=== PATIENT | male | born 1930 | race Caucasian/White ===

== ENCOUNTER 2019-03-27 09:45 | Observation (INO) | payer BC ==
[2019-03-27] MEDS ORDERED: NS 0.9% 1000 ML** 1,000 ML IV ONE ×2 (10:14→18:46)
--- NOTE | 2019-03-27 10:14 | ED ---
Altered Mental Status - HPI Summary HPI Summary: An 88 y/o M presents to ED with AMS onset first noticed yesterday. Per his , Justine, pt had decreased oral intake and generalized weakness and lethargy yesterday, and today he was unable to sit up on his own. She also noticed pt has a cough. At bedside, pt says he does not know why he's here. When prompted, he complains of CP, SOB. He does not know the month or date. At bedside, he is unable to sit up. Bedside temp is 101.9 F. - History Of Current Complaint Chief Complaint: EDAltMentalStatus Stated Complaint: LETHARGY PER EMS Time Seen by Provider: 03/27/19 10:08 Hx Obtained From: Patient, Family/Gum Rolling Machine Operator - , Justine Onset/Duration: Still Present Timing: Constant, Lasting Days - yesterday Severity Initially: Moderate Severity Currently: Moderate Character: Confusion Associated Signs And Symptoms: Positive: Fever, Weakness - Allergies/Home Medications Allergies/Adverse Reactions: Allergies Allergy/AdvReac Type Severity Reaction Status Date / Time bee venom protein (honey bee) Allergy Anaphylatic Verified 03/27/19 10:17 Shock Home Medications: Home Medications Warfarin TAB(*) [Coumadin TAB(*)] 3.75 mg PO 1700 03/27/19 [History Confirmed ] PMH/Surg Hx/FS Hx/Imm Hx Previously Healthy: No Cardiovascular History: Reports: Hx Cardiomegaly - PT STATES POSSIBLY, Hx Pacemaker/ICD - [employer] Respiratory History: Denies: Other Respiratory Problems/Disorders GI History: Denies: Other GI Disorders History: Denies: Other Problems/Disorders Sensory History: Reports: Hx Cataracts, Hx Contacts or Glasses - GLASSES Denies: Hx Hearing Aid Opthamlomology History: Reports: Hx Cataracts, Hx Contacts or Glasses - GLASSES Neurological History: Denies: Other Neuro Impairments/Disorders - Surgical History Surgery Procedure, Year, and Place: PAC[facility]AKER, 1995, [facility] Hx Anesthesia Reactions: No Infectious Disease History: No Infectious Disease History: Denies: Traveled Outside the [place] in Last 30 Days - Family History Family History: neg: anaesthesia reaction - Social History Occupation: Retired Lives: With Family Alcohol Use: Rare Hx Substance Use: No Substance Use Type: Reports: None Hx Tobacco Use: Yes Smoking Status (MU): Former Smoker Review of Systems Positive: Fever, Other - pos: lethargy Positive: Chest Pain Positive: Shortness Of Breath, Cough Positive: Other - pos: decreased oral intake Neurological: Other - pos: confusion/AMS Positive: Weakness All Other Systems Reviewed And Are Negative: Yes Physical Exam - Summary Physical Exam Summary: VITAL SIGNS: Reviewed. GENERAL: Patient is a well-developed and nourished (MALE OR FEMALE) who is lying comfortable in the stretcher. Patient is not in any acute respiratory distress. HEAD AND FACE: No signs of trauma. No ecchymosis, hematomas or skull depressions. No sinus tenderness. EYES: PERRLA, EOMI x 2, No injected conjunctiva, no nystagmus. EARS: Hearing grossly intact. Ear canals and tympanic membranes are within normal limits. MOUTH: Oral mucosa is dry. NECK: Supple, trachea is midline, no adenopathy, no JVD, no carotid bruit, no c- spine tenderness, neck with full ROM. CHEST: Symmetric, no tenderness at palpation LUNGS: Decreased breath sounds bilaterally CVS: Regular rate and rhythm, S1 and S2 present, no murmurs or gallops appreciated. ABDOMEN: Soft, non-tender. No signs of distention. No rebound, no guarding, and no masses palpated. Bowel sounds are normal. EXTREMITIES: FROM in all major joints, no edema, no cyanosis or clubbing. NEURO: Alert and oriented x 3. No acute neurological deficits. Speech is normal and follows commands. SKIN: Dry and warm, turgor is increased Triage Information Reviewed: Yes Vital Signs On Initial Exam: Initial Vitals Temp Pulse Resp BP Pulse Ox 101.9 F 113 20 133/72 98 03/27/19 10:05 03/27/19 10:05 03/27/19 10:05 03/27/19 10:05 03/27/19 10:05 Vital Signs Reviewed: Yes Diagnostics - Vital Signs Vital Signs Temp Pulse Resp BP Pulse Ox 03/27/19 10:05 101.9 F 113 20 133/72 98 - Laboratory Result Diagrams: 03/28/19 05:43 03/28/19 05:43 Lab Statement: Any lab studies that have been ordered have been reviewed, and results considered in the medical decision making process. - Radiology CXR Radiology Interpretation Completed By: Radiologist Summary of Radiographic Findings: IMPRESSION: HYPERINFLATION, CONSISTENT WITH COPD. NO ACTIVE CARDIOPULMONARY DISEASE. ED provider has reviewed this report. - EKG 1020 Cardiac Rate: Tachycardia - 106 bpm EKG Rhythm: Sinus Tachycardia Ectopy: PVCs Summary of EKG Findings: No ST elevation. Inverted T-waves in aVL, V1-V6. 1134 Cardiac Rate: NL - 71 bpm EKG Rhythm: Sinus Rhythm EKG Comparison: No Significant Change - from EKG on 06/26/06. Summary of EKG Findings: RBBB. Altered Mental Statu Course/Dx - Course Assessment/Plan: This patient is an 88-year-old male with past medical history significant for hypertension, atrial fibrillation on Coumadin, coronary artery disease, dyslipidemia presents to the emergency department with family members complaining of weakness. The patient has chest pain, shortness of breath, palpitations. He has no other complaints. Test results shows slight anemia, creatinine 1.18, CPK 300, troponin 0.05, CRP is 38.4, BNP of 919. EKG shows a normal sinus rhythm with right bundle-branch block. Because of the increased troponin the patient was given aspirin. I did not give the patient Lasix since the patients blood pressure is only 90/50. I discussed my physical exam and findings with Dr. Zuñiga from the hospitalist services who accepted the patient for admission. - Diagnoses Provider Diagnoses: CHF (congestive heart failure), Weakness, Elevated troponin - Provider Notifications Discussed Care Of Patient With: Lebron Spring - cardiology Time Discussed With Above Provider: 11:52 Instructed by Provider To: Other - Reviewed EKG, does not feel it shows an acute STEMI Discharge - Sign-Out/Discharge Documenting (check all that apply): Patient Departure - ADM Patient Received Moderate/Deep Sedation with Procedure: No - Discharge Plan Condition: Stable Disposition: ADMITTED TO [facility] - Billing Disposition and Condition Condition: STABLE Disposition: Admitted to [facility] - Attestation Statements Document Initiated by Scribe: Yes Documenting Scribe: Ko Cabrera Provider For Whom Scribe is Documenting (Include Credential): Dr. Wilton Shi MD Scribe Attestation: Ko Atkins, scribed for Dr. Wilton Shi MD on 03/28/19 at 0719. Scribe Documentation Reviewed: Yes Provider Attestation: The documentation as recorded by the tamekaibe, AmyCarlitos Cabrera accurately reflects the service I personally performed and the decisions made by me, Dr. Wilton Shi MD Status of Scribe Document: Viewed Consult Consult: 1200: Consulted with Dr. Zuñiga, hospitalist Pt will be admitted.
[2019-03-27] MEDS ORDERED: Acetaminophen TAB* 325 MG PO ONE (10:15)
[2019-03-27 10:32] LABS: ABS Basophils 0.1 10^3/ul (0-0.2); ABS Eosinophils 0.1 10^3/ul (0-0.6); ABS Lymphocytes 0.6 10^3/ul (1.0-4.8); ABS Monocytes 0.9 10^3/ul (0-0.8); ABS Neutrophils 6.4 10^3/ul (1.5-7.7); ABS Nucleated RBC 0 10^3/ul; Eosinophil % 0.7 %; Hematocrit 31 % (42-52); Hemoglobin 10.5 g/dL (14.0-18.0); Lymphocyte % 7.5 %; Mean Corpuscular HGB Conc 34 g/dL (31-36); Mean Corpuscular Hemoglobin 31 pg (27-31); Mean Corpuscular Volume 91 fL (80-94); Mean Platelet Volume 8.6 fL (7.4-10.4); Nucleated Red Blood Cells % 0; Platelet Count 225 10^3/uL (150-450); Red Blood Count 3.41 10^6 /uL (4.18-5.48); Red Cell Distribution Width 13 % (10.5-15); White Blood Count 8.1 10^3/uL (3.5-10.8)
[2019-03-27 10:54] LABS: Activated Partial Thrombo Time 37.1 seconds (26.0-36.3); INR 2.86 (0.82-1.09)
[2019-03-27 10:58] LABS: Troponin I 0.05 ng/mL (<0.04)
[2019-03-27 11:11] LABS: ALT 14 U/L (7-52); AST 25 U/L (13-39); Albumin 3.3 g/dL (3.2-5.2); Albumin/Globulin Ratio 0.9 (1-3); Alkaline Phosphatase 90 U/L (34-104); Anion Gap 10 mmol/L (2-11); BUN/Creatinine Ratio 20.3 (8-20); Blood Urea Nitrogen 24 mg/dL (6-24); C Reactive Protein 38.49 mg/L (<8.01); CO2 Carbon Dioxide 20 mmol/L (22-32); Calcium 8.7 mg/dL (8.6-10.3); Chloride 108 mmol/L (101-111); Creatine Kinase 300 U/L (10-223); EGFR African American 70.7 (>60); EGFR Non-African American 58.4 (>60); Globulin 3.5 g/dL (2-4); Glucose 87 mg/dL (70-100); Magnesium 2.2 mg/dL (1.9-2.7); Potassium 4.5 mmol/L (3.5-5.0); Sodium 138 mmol/L (135-145); Total Protein 6.8 g/dL (6.4-8.9)
[2019-03-27 11:28] LABS: TSH (Thyroid Stimulating Horm) 0.35 mcIU/mL (0.34-5.60)
[2019-03-27] MEDS ORDERED: Aspirin 81 mg CHEW TAB* 81 MG TAB.CHEW PO ONE (11:48)
[2019-03-27 12:46] LABS: Urine Appearance Cloudy; Urine Bacteria 1+ (Absent); Urine Bilirubin Negative (Negative); Urine Blood 2+ (Negative); Urine Color Yellow; Urine Glucose Negative (Negative); Urine Ketones 1+ (Negative); Urine Nitrite Negative (Negative); Urine Protein Negative (Negative); Urine Red Blood Cell 3+(>10/hpf) (Absent); Urine Urobilinogen Negative (Negative); Urine White Blood Cell Trace(0-5/hpf) (Absent)
[2019-03-27 13:04] LABS: Ferritin 243.7 ng/mL (24-336)
[2019-03-27 13:26] LABS: Folate 18.33 ng/mL (>3.99)
[2019-03-27] MEDS ORDERED: Polyethylene Glycol 3350* 17 GM PACKET PO PRN (13:41)
[2019-03-27] MEDS ORDERED: Acetaminophen TAB* 325 MG PO PRN (14:30)
[2019-03-27] MEDS ORDERED: Perflutren Lipid Microsphere* 3 ML VIAL ONE (14:36)
[2019-03-27 14:37] LABS: Iron < 17 ug/dL (50-212)
[2019-03-27] MEDS ORDERED: Senna TAB PO PRN (14:48)
[2019-03-27 15:10] LABS: Troponin I 0.05 ng/mL (<0.04)
--- NOTE | 2019-03-27 16:24 | HP ---
CC: Dr. Dianne Johansen; Dr. Arley Julian HISTORY AND PHYSICAL: DATE OF ADMISSION: 03/27/19 PRIMARY CARE PROVIDER: Dr. Dianne Johansen. EXTENSION SERVICE SPECIALIST: Dr. Arley Julian. HEALTHCARE PROXY: , Justine. CHIEF COMPLAINT: One day of lethargy and weakness. HISTORY OF PRESENT ILLNESS: Mr. 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 She noted that she tried to sit him up in bed and he was too weak to even sit up. She notes that over the past few weeks, he has had a mild nonproductive cough that is not progressive. She also notes that he has been having some constipation recently with last bowel movement approximately 2 days ago. Of note, this bowel movement may have contained blood as well, which he does not have a history of. The patient reporting abdominal pain just today , but denies nausea, vomiting, or diarrhea. He does report significant gas, which is a chronic problem, which is causing a lot of diffuse abdominal pain. He is able to pass gas. Starting yesterday, the thinks he was just a bit weaker than normal, although it is difficult to tell because of his inclusion body myositis, he has had progressive weakness with his baseline constantly deteriorating. Yesterday, he also had a decrease in his appetite and she reports that he "barely ate" besides some toast in the morning and no fluids during the day. The patient denies shortness of breath, chest pain, headache, dysuria, fevers, chills, or night sweats. In the emergency room, he was noted to have a fever to 101.9. He had mild anemia with creatinine at baseline. CPK 300 with troponin 0.05 and CRP 38. His EKG showed normal sinus rhythm with a right bundle branch block. His EKG was discussed with covering student support services director, Dr. Spring, who produced EKGs from clinic that showed that this is not a new EKG finding. The patient was given Tylenol, aspirin 324 mg, 1 L of IV fluids, and had blood culture and urine test sent, and he was admitted to Medicine for further workup. PAST MEDICAL HISTORY: 1. Myocardial infarction in 1995, status post PCI of LAD, complicated by reocclusion in 3 weeks. 2. Ischemic cardiomyopathy with ejection fraction 20% to 25%, status post ICD and PPM. 3. Cardioembolic event when off warfarin. reports blood clot to kidney, so the patient has continued on anticoagulation. 4. Nonsustained ventricular tachycardia. 5. 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 6. Right bundle branch block since 2008. 7. Melanoma, status post resection 2010. PAST SURGICAL HISTORY: 1. Cholecystectomy. 2. Appendectomy. 3. Surgery for endometriosis. 4. C-sections x3. MEDICATIONS: 1. Aspirin 81 mg daily. 2. Warfarin 2.5 mg daily. 3. Carvedilol 3.125 mg twice a day. 4. Lisinopril 2.5 mg daily. 5. Spironolactone 12.5 mg daily. ALLERGIES: BEE VENOM PROTEIN CAUSES ANAPHYLACTIC SHOCK. FAMILY HISTORY: Mother from heart failure. Father from heart attack, had Alzheimer's. SOCIAL HISTORY: The patient lives with his and daughter. 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 He quit tobacco in 1972. He denies alcohol or other drug use. REVIEW OF SYSTEMS: The 10-point review of systems as per HPI, otherwise negative. PHYSICAL EXAMINATION GENERAL: Chronically ill-appearing elderly man, in no acute distress. Friendly , alert, and conversant. VITAL SIGNS: T-max 101.9, heart rate 60s, blood pressure 102/55, respiratory rate 12, oxygen saturation 97% on room air. HEENT: Dry mucous membranes NECK: No JVD. LUNGS: Clear to auscultation bilaterally. HEART: Regular rate and rhythm. No murmurs, gallops, or rubs. ABDOMEN: Soft, nontender, nondistended. Hyperactive bowel sounds. No organomegaly. EXTREMITIES: Warm and well perfused. No edema. NEURO: Proximal muscle weakness of upper and lower extremities, 4/5 handgrip and ankle flexion and extension, 5/5. DIAGNOSTIC STUDIES/LAB DATA: Labs reviewed and significant for hemoglobin 10.5, slightly lower than baseline , normocytic. INR 2.86. Creatinine 1.18 at baseline. Troponin 0.05. CPK 300. BNP 919. UA with ketones and 3+ rbc's, positive hyaline cast, negative leuk esterase, and nitrites. Chest x-ray, PA and lateral, hyperinflation consistent with COPD. No active cardiopulmonary disease. ASSESSMENT AND PLAN: An 88-year-old man with a history of inclusion body myositis; ischemic cardiomyopathy, EF 20% to 25% with cardioembolic event off anticoagulation, now on warfarin, status post ICD and PPM, who is presenting with multiple nonspecific symptoms including fever, lethargy, progressive weakness, constipation, abdominal pain, gas, and several weeks of cough. 1. Fever with multiple other nonspecific symptoms. No focal signs of infection at this time with clear chest x-ray and urine not concerning for infection. The patient has had cough, so can consider viral infection, although this is not a typical symptomatology. We can repeat chest x-ray when the patient is hydrated to reexamine for pneumonia, although also has no SOB, chills, hypoxia, leukocytosis. The patient is reporting abdominal pain as of today, but also reports history of gas with abdominal pain, and abdominal exam and LFTs are benign. For constipation, we will order bowel regimen and monitor closely given concern for recent blood in stool, and the patient is on aspirin and blood thinner. Follow up blood cultures. 2. Poor p.o. Unclear etiology of decreased appetite. The patient has had decreased p.o. in the context of taking spironolactone and his antihypertensive , and now his blood pressure is low. We will hold antihypertensives and give the patient 1 L of fluid and monitor volume status closely. 3. Hypertension. Holding lisinopril and spironolactone 4. Heart failure. We will continue carvedilol but we will hold spironolactone and lisinopril in the setting of hypovolemia. Follow up TTE. 5. Coronary artery disease. Continue aspirin. The patient not on statin given history of muscle weakness. Can continue warfarin, but will monitor closely for signs of bleeding. 6. DVT prophylaxis not indicated given the patient on therapeutic anticoagulation. TIME SPENT: Approximately 60 minutes was spent on admission of this patient, more than half of which was spent at bedside for the interview and exam. [id number]/[facility] #: [id number] [facility] HOSPITALMaria Alejandra
--- NOTE | 2019-03-27 16:38 | ECHO ---
*[facility]* [place] [address] Fax #: [phone] Transthoracic Echocardiogram Patient: Horacio, Height: 64 in / Alejo Arcos 162.6 cm : 1930 Weight: 119.8 lb / Study Date: 03/27/2019 54.4 kg Age: 88 BP: 92 / 58 Gender: M BMI/BSA: 20.6 kg/m^2 HR: 56 bpm / 1.57 m^2 *Pairer: * Lara German RDCS RN *Referring Physician: * Marisela Zuñiga *Reading Physician: * Lebron Spring MD Indications: Congestive Heart Failure. History: PMH: Myocardial infarction. Pacemaker/ICD. Risk factors: Former tobacco use. Conclusions Summary: 1. Left ventricle: The cavity size is normal. Wall thickness is mildly increased. Systolic function is severely reduced. The estimated ejection fraction is 25-30%. Large area of genia-apical akinesis. Doppler parameters are consistent with abnormal left ventricular relaxation (grade 1 diastolic dysfunction). 2. Normal cardiac chamber sizes. 3. Mitral valve: There is mild regurgitation. 4. Tricuspid valve: There is mild-moderate regurgitation. 5. Since the prior echocardiogram completed 05/01/14, there is no significant change. Study data: Transthoracic echocardiogram. Procedure: Transthoracic echocardiography was performed. Image quality was fair. A total of 3 ml of diluted Definity was administered IV. Image enhancement administered by Eduarda Wadsworth RN. Complete 2D, spectral Doppler, and color flow Doppler. Patient status: Inpatient. Patient room number: ED 18. Rhythm: Bradycardia. Findings Left ventricle: The cavity size is normal. Wall thickness is mildly increased. Systolic function is severely reduced. The estimated ejection fraction is 25-30%. Large area of genia-apical akinesis. Doppler parameters are consistent with abnormal left ventricular relaxation (grade 1 diastolic dysfunction). Right ventricle: The cavity size is normal. Systolic function is normal. Left atrium: The atrium is normal in size. Right atrium: The atrium is normal in size. Mitral valve: The leaflets are mildly thickened. There is mild regurgitation. Aortic valve: The valve is trileaflet. The leaflets are mildly thickened. There is no evidence of stenosis. There is no regurgitation. The LVOT to aortic valve VTI ratio is 0.63. The ratio of LVOT to aortic valve peak velocity is 0.71. The ratio of LVOT to aortic valve mean velocity is 0.65. The mean systolic gradient is 4.0 mm Hg. The peak systolic gradient is 7.0 mm Hg. Tricuspid valve: The valve is structurally normal. There is mild-moderate regurgitation. There is no pulmonary hypertension. Estimated pulmonary artery systolic pressure is 32 mm Hg. Pulmonic valve: Not well visualized. There is no evidence of stenosis. There is trivial regurgitation. The peak systolic gradient is 2.0 mm Hg. Aorta: Aortic root: The aortic root is not dilated. Ascending aorta: The ascending aorta is not dilated. Aortic arch: The aortic arch is not visualized and appears normal. Pericardium: There is no pericardial effusion. Pulmonary arteries: Not well visualized. Systemic veins: Inferior vena cava: The vessel is normal in size. The respirophasic diameter changes are blunted (< 50%). Measurements Left ventricle Value Ref Right atrium Value Ref NATASHA, LAX 4.6 cm 4.2 - 5.8 ML dim, ES, A4C 3.9 cm 2.6 - ESD, LAX 3.9 cm 2.5 - 4.0 4.4 FS, LAX (L) 16 % 25 - 43 SI dim, ES, A4C 4.8 cm 3.4 - PW, ED, LAX (H) 1.1 cm 0.6 - 1.0 5.3 FS (L) 16 % 25 - 43 E', lat harshad, TDI (L) 7.7 cm/sec >=10.0 Aortic valve Value R ef E/e', lat harshad, 7 Harshad diam, ED 2.3 cm ---- ---- TDI Peak v, S 1.32 m/sec -------- E', med harshad, TDI (L) 4.2 cm/sec >=7.0 Mean v, S 0.91 m/sec - ------- E/e', med harshad, 13 VTI, S 31.3 cm ---- ---- TDI Mean grad, S 4.0 mm Hg -------- E', avg, TDI 6.0 cm/sec Peak grad, S 7.0 mm Hg ---- ---- E/e', avg, TDI 9 <=14 Mitral valve Value Ref LVOT Value Ref Peak E 0.54 m/sec -------- Peak moustapha, S 0.94 m/sec Peak A 0.74 m/sec -------- Mean moustapha, S 0.59 m/sec Decel time 250 ms -------- VTI, S 19.6 cm Peak E/A ratio 0.7 -------- Mean grad, S 2 mm Hg Tricuspid valve Value Ref Ventricular septum Value Ref Peak RV-RA grad, 23 mm Hg -------- IVS, ED, LAX (H) 1.2 cm 0.6 - 1.0 S Max TR moustapha 2.4 m/sec -------- Right ventricle Value Ref NATASHA, LAX 2.7 cm Aortic root Value Ref NATASHA minor ax, 3.4 cm 1.9 - 3.5 Root diam 3.0 cm <3.8 A4C mid Ascending aorta Value Ref Left atrium Value Ref AAo AP diam, S 3.3 cm -------- AP dim, ES 3.00 cm 3.00 - 4.00 Inferior vena cava Value Ref ML dim, A4C 4.8 cm Diam 1.8 cm -------- SI dim, A4C 4.8 cm Vol/bsa, ES, 1-p (H) 44 ml/m^2 12 - 37 A4C Vol/bsa, ES, 1-p 24 ml/m^2 11 - 43 A2C Vol/bsa, ES, A/L 32 ml/m^2 16 - 34 Legend: (L) and (H) leigha values outside specified reference range. Prepared and electronically signed by eLbron Spring MD 03/27/2019 16:37
[2019-03-27] MEDS ORDERED: Warfarin TAB(*) 2.5 MG PO ONE (17:00)
[2019-03-27 18:57] LABS: % Iron Saturation 8 % (15-55); Total Iron Binding Capacity 225 mcg/dL (250-450); Transferrin 161 mg/dL (203-362)
[2019-03-27] MEDS: Carvedilol TAB* 3.125 MG PO SCH (21:42)
[2019-03-28 06:32] LABS: ABS Eosinophils 0.2 10^3/ul (0-0.6); ABS Lymphocytes 0.8 10^3/ul (1.0-4.8); ABS Monocytes 1.1 10^3/ul (0-0.8); ABS Neutrophils 5.7 10^3/ul (1.5-7.7); Eosinophil % 2.1 %; Hematocrit 28 % (42-52); Hemoglobin 9.6 g/dL (14.0-18.0); Lymphocyte % 10.9 %; Mean Corpuscular HGB Conc 34 g/dL (31-36); Mean Corpuscular Hemoglobin 31 pg (27-31); Mean Corpuscular Volume 91 fL (80-94); Mean Platelet Volume 9.6 fL (7.4-10.4); Platelet Count 187 10^3/uL (150-450); Red Cell Distribution Width 13 % (10.5-15); White Blood Count 7.8 10^3/uL (3.5-10.8)
[2019-03-28 06:38] LABS: INR 3.9 (0.82-1.09)
[2019-03-28 07:00] LABS: BUN/Creatinine Ratio 23.8 (8-20); Blood Urea Nitrogen 25 mg/dL (6-24); CO2 Carbon Dioxide 16 mmol/L (22-32); EGFR African American 80.8 (>60); EGFR Non-African American 66.8 (>60); Glucose 86 mg/dL (70-100); Magnesium 1.5 mg/dL (1.9-2.7); Potassium 4.1 mmol/L (3.5-5.0); Sodium 138 mmol/L (135-145)
[2019-03-28 07:02] LABS: Anion Gap 10 mmol/L (2-11); Chloride 112 mmol/L (101-111)
[2019-03-28] MEDS ORDERED: Aspirin 81 mg CHEW TAB* 81 MG TAB.CHEW PO SCH (09:00)
[2019-03-28 09:13] LABS: Ferritin 242.1 ng/mL (24-336)
[2019-03-28 09:23] LABS: Total Iron Binding Capacity 183 mcg/dL (250-450); Transferrin 131 mg/dL (203-362)
[2019-03-28 09:24] LABS: % Iron Saturation 9 % (15-55); Iron < 17 ug/dL (50-212)
[2019-03-28 09:52] LABS: Troponin I 0.05 ng/mL (<0.04)
[2019-03-28] MEDS: Carvedilol TAB* 3.125 MG PO SCH (10:12)
[2019-03-28] MEDS ORDERED: Senna TAB PO PRN (10:21)
[2019-03-28] MEDS ORDERED: Senna TAB PO ONE (13:25)
[2019-03-28 15:31] VITALS: BP 118/63
[2019-03-28] MEDS: Magnesium Chloride EC TAB* 64 MG PO ONE ×2 (17:20→17:34)
--- NOTE | 2019-03-29 02:39 | DS ---
AMENDED REPORT NOW INCLUDES DESIGNATED COSIGNER DATE OF DISCHARGE NOW INCLUDED ON REPORT CC: Dr. Johansen * DISCHARGE SUMMARY: DATE OF ADMISSION: 03/27/19 DATE OF DISCHARGE: 03/28/19 PROVIDER: WILLIAM Choudhary. ATTENDING PHYSICIAN: Dr. Marlys Noland * (dictated by WILLIAM Choudhary). PRIMARY CARE PROVIDER: Dr. Johansen. PRIMARY DIAGNOSES: 1. Acute on chronic weakness, likely related to dehydration. 2. Elevated INR. 3. Anemia. SECONDARY DIAGNOSES: 1. 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 2. Myocardial infarction, status post percutaneous coronary intervention of LAD in 1995. 3. Ischemic cardiomyopathy with EF of 20% to 25%, status post ICD and pacemaker. 4. 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 5. Non-sustained ventricular tachycardia. DIAGNOSTIC STUDIES: Transthoracic echo on 03/27/19, please see report for further details, but of note the estimated ejection fraction is 25% to 30% with grade 1 diastolic dysfunction. EKG on 03/27/19, T-wave inversion from V1 to V6 with right bundle-branch block evident. This EKG was reviewed by Dr. Spring in the emergency department and found to be unchanged from EKGs from the clinic as there were none documented in the hospital's EMR. Chest x-ray on 03/27/19, impression: Hyperinflation consistent with COPD. No active cardiopulmonary disease. PERTINENT LABORATORY DATA: Troponin 0.05 x3. BUN 24 and creatinine 1.18 on admission, creatinine of 1.05 on discharge, BUN 25 on discharge. Hemoglobin of 10.5. Ferritin 243.7, transferrin 161, unsaturated iron binding less than 210, percent saturation 8, TIBC 225, iron less than 17. Vitamin B12 of 224, folate 18.33. TSH 0.35. BNP 919. CRP 38.49. INR 2.86 on the day of admission, INR 3.9 on the day of discharge. Urine, final microbiology: No growth. Blood culture without growth x1 day. DISCHARGE MEDICATIONS: Senna 1 tab p.o. daily p.r.n. constipation. Continued home medications: 1. Warfarin 375 mg p.o. every Sunday. 2. Warfarin 2.5 mg p.o. every n (of note, the patient was advised to hold this temporarily, described in discharge plan below). 3. Spironolactone 12.5 mg p.o. daily. 4. Lisinopril 2.5 mg p.o. daily (of note, the patient was advised to hold this for 3 days). 5. Aspirin 81 mg p.o. daily. HISTORY OF PRESENT ILLNESS/HOSPITAL COURSE: Alejo Leonard is an 88-year-old male with past medical history of inclusion body myositis; ischemic cardiomyopathy, status post ICD and pacemaker, history of cardioembolic event on Coumadin, history of [place], who presented from home with lethargy, weakness, and poor oral intake. He was found to have a temperature of 101.1 temporally in the emergency department and the patient was asymptomatic of this. During his stay, he was afebrile for the remainder of his hospitalization. Chest x- ray ruled out pneumonia. Urine culture without growth. I do consider the possibility that the thermometer in the emergency department on that one reading may have been inaccurate. The patient's weakness has been progressive due to his inclusion body myositis and was greatly improved on the day of discharge. The patient was seen by Physical Therapy, who recommended skilled physical therapy; however, the patient refused this. He refused VNS and outpatient or home physical therapy as well. The patient was able to ambulate with walker around the unit well. He and his were confident that he returned to his mobility baseline as well as his strength baseline, though his baseline is frequently changing due to progression of disease. During his hospital stay, he was hypotensive to lowest 80/38 and this did respond well to IV fluids and was normotensive afterwards. It is of note that the patient does have a baseline lower blood pressure. I do suspect that all his symptoms, aside from the one-time fever, were likely due to poor oral intake and likely stem from dehydration. Additionally, hypomagnesemia was found and was replaced. He does have anemia, which appears normochromic and normocytic and is lower than his baseline. Etiology is not iron deficiency. He does have a low B12 and methylmalonic acid was ordered. Additionally, INR on date of discharge was found to be 3.9. As mentioned, the patient had elevated troponin but it was stable, possibly related to chronic kidney disease in combination with his ischemic cardiomyopathy. The patient's EKG was unchanged from prior in-office EKGs according to from Dr. Spring and the patient was asymptomatic and therefore it was low concern and echo was with EF of 5% greater than prior echocardiogram. While the patient was in the hospital, he was continued on 2.5 mg of warfarin for treatment of his history of cardioembolic event. His home spironolactone and lisinopril were held in the setting of hypotension, and his home carvedilol and aspirin were continued for treatment of his coronary artery disease and ischemic cardiomyopathy. On date of discharge, the patient is feeling well, and as previously mentioned, ambulating well and appeared returned to his baseline. He was no longer feeling lethargic and was quite motivated to return home. Denied dizziness, chest pain, dyspnea, tachycardia, palpitations. Of note, the patient has not had a bowel movement in 3 days but denies nausea, vomiting, and abdominal pain. He was given Senna for his constipation and did not have bowel movement while inpatient. REVIEW OF SYSTEMS: An 11-point review of systems was completed and all pertinent positives and negatives are above in the HPI. All other systems are negative. PHYSICAL EXAM ON DATE OF DISCHARGE: General: Thin, elderly white male, lying comfortably in hospital bed, appearing in no acute distress; at bedside. Head: Normocephalic, atraumatic. Eyes: Sclerae anicteric. PERRL. EOMI. ENT : Mucous membranes moist. Neck: Without JVD. Neck is supple. Cardio: Regular rate and rhythm without murmurs, rubs, or gallops. Lungs: Lungs are clear to auscultation throughout. Abdomen: Abdomen is soft, nontender, nondistended. Extremities: No clubbing, edema, or cyanosis. Neuro: Strength is 4/5 proximal legs, 5/5 in proximal arms. Strength is 5/5 in distal legs and handgrip bilaterally. The patient is alert and oriented x3. Psych: The patient is pleasant and cooperative. DISCHARGE PLAN: Diet: Heart healthy diet. Activity: The patient is to return to normal activity with walker or cane as tolerated. The patient is advised to return to the emergency department if he is experiencing unilateral weakness, dizziness, blood pressure less 90/60. The patient advised to follow up with his PCP's office within 4 to 7 days, advised to call his PCP office if he does not experience a bowel movement in the next 2 days using Dulcolax and Senna for possible prescription for a suppository or may use [id number] suppository. As previously mentioned, the patient declined physical therapy services outside of the hospital. At the time of followup with primary care office, advised that the provider find the result of the methylmalonic acid to further delineate B12 deficiency. Advised to recheck CBC, BMP, and magnesium at this time. The patient was advised to hold his lisinopril for 3 days considering his hypotension and to check his blood pressure once a day leading up to his appointment with his primary care provider. The patient is advised to hold his Coumadin until his INR is less than or equal to 2.5. The patient has an INR measurement machine at home. The patient is advised to increase oral intake of water, at least 6-8 glasses per day is advised. For the patient's coronary artery disease and ischemic cardiomyopathy, he is to continue his lisinopril, spironolactone, carvedilol, and may continue the lisinopril after holding for 3 days. For history of cardioembolic event, he is continue his warfarin as previously mentioned. CONDITION ON DISCHARGE: Stable. DISPOSITION: Home. TIME SPENT: Approximately 50 minutes was spent on this discharge, approximately half this time was spent at bedside. WILLIAM CHOUDHARY [id number]/[facility] #: [id number] [facility] HOSPITALMaria Alejandra
== END 2019-03-28 18:40 | disposition home or self-care (01) ==
LOC: ED 09:45 → INTOOBSV 13:25 → MED 13:25
PROVIDERS: ADMIT Internal Medicine; ATTEND Internal Medicine
DX: R50.9 Fever, unspecified (principal); R53.1 Weakness; E86.0 Dehydration; R79.1 Abnormal coagulation profile; D64.9 Anemia, unspecified; M60.9 Myositis, unspecified; I25.2 Old myocardial infarction; I25.5 Ischemic cardiomyopathy; Z79.01 Long term (current) use of anticoagulants; I45.10 Unspecified right bundle-branch block; Z86.73 Personal history of transient ischemic attack (TIA), and cerebral infarction without residual deficits; I47.2 Ventricular tachycardia; Z79.82 Long term (current) use of aspirin; Z90.89 Acquired absence of other organs; Z85.820 Personal history of malignant melanoma of skin; Z87.891 Personal history of nicotine dependence; I11.0 Hypertensive heart disease with heart failure; I50.9 Heart failure, unspecified; I25.10 Atherosclerotic heart disease of native coronary artery without angina pectoris
CPT/HCPCS: 36415; 71046; 80048; 80053; 81003; 81015; 82550; 82607; 82728; 82746; 83540; 83550; 83605; 83735; 83880; 83921; 84443; 84484; 85025; 85610; 85730; 86140; 87040; 87086; 93005; 93306; 96372; 99285; A9270-GY; C8929; G0378; G8978-GP-CK; G8979-GP-CI

== ENCOUNTER 2019-04-03 19:52 | Emergency (ER) | payer BC ==
--- NOTE | 2019-04-03 20:24 | ED ---
GI/ HPI - HPI Summary HPI Summary: Patient is a 88 y/o M presenting to ED via EMS with with complaints of decreased PO intake since two days ago. Patient had been seem at [facility] last week and was admitted for CHF, elevated trop and weakness. He was discharged to home six days ago. Patient's claims that the patient only had 1/2 a slice of toast and 4 oz of liquid for the past two days and 4 oz of liquid and a few bites of pancake today. The also reports that the patient has appeared more "foggy" and has experienced weight loss recently. Patient reports minimal abdominal pain and the states that the patient has been "gaseous". No SOB is reported but the patient endorses a productive cough. Patient had some diarrhea two days ago after being given a laxative. reports that the patient has had some difficulty with swallowing for the past few years as well. Per triage, "Pt has had cruzcecilia lernerer x2 today for gas pains". Patient's reports that the patient had experienced a fall after coming home six days ago. The relates this fall to the patient's myositis. Patient has been taking his regular medications and has had his diuretic today. PMHx of pacemaker. On triage, pain is rated 1/10. Nothing is noted to aggravate/alleviate Sx. Home medications and allergies are reviewed. - History of Current Complaint Time Seen by Provider: 04/03/19 20:04 Stated Complaint: ABD PAIN PER EMS Hx Obtained From: Patient, Family/Plumbing Inspector - Onset/Duration: Started Days Ago - decreased PO intake two days ago, fall six days ago, diarrhea two days ago, Started Weeks Ago - difficulty swallowing for past two years, Still Present Timing: Constant, Lasting Days - decreased PO intake two days ago, fall six days ago, Lasting Weeks - difficulty swallowing for past two years Current Severity: Mild - 1/10 Pain Intensity: 1 Location of Pain: Diffuse Pain Characteristics: Other: - "gaseous" Associated Signs and Symptoms: Positive: Diarrhea, Change in Appetite - decreased PO intake, Abdominal Pain, Cough - PRODUCTIVE, Other: - POSITIVE - FALL, "FOGGY", "GASEOUS", DECREASED PO INTAKE, DIFFICULTY SWALLOWING; NEGATIVE - SOB Aggravating Factor(s): Nothing Alleviating Factor(s): Nothing - Additional Pertinent History Primary Care Physician: MONICA - Allergy/Home Medications Allergies/Adverse Reactions: Allergies Allergy/AdvReac Type Severity Reaction Status Date / Time bee venom protein (honey bee) Allergy Anaphylatic Verified 03/27/19 10:17 Shock PMH/Surg Hx/FS Hx/Imm Hx Cardiovascular History: Reports: Hx Cardiomegaly - PT STATES POSSIBLY, Hx Pacemaker/ICD - [employer] Respiratory History: Denies: Other Respiratory Problems/Disorders GI History: Denies: Other GI Disorders History: Denies: Other Problems/Disorders Sensory History: Reports: Hx Cataracts, Hx Contacts or Glasses - GLASSES Denies: Hx Hearing Aid Opthamlomology History: Reports: Hx Cataracts, Hx Contacts or Glasses - GLASSES Neurological History: Denies: Other Neuro Impairments/Disorders - Surgical History Surgery Procedure, Year, and Place: [facility]AKER, 1995, [facility] Hx Anesthesia Reactions: No Infectious Disease History: No Infectious Disease History: Denies: Traveled Outside the [place] in Last 30 Days - Family History Known Family History: Positive: Cardiac Disease, Other - neg: anaesthesia reaction Family History: neg: anaesthesia reaction - Social History Alcohol Use: Rare Hx Substance Use: No Substance Use Type: Reports: None Hx Tobacco Use: Yes Smoking Status (MU): Former Smoker Review of Systems ENT: Other - POSITIVE - DIFFICULTY SWALLOWING Positive: Cough. Negative: Shortness Of Breath Gastrointestinal: Other - POSITIVE - "GASEOUS", DECREASED PO INTAKE Positive: Abdominal Pain, Diarrhea Musculoskeletal: Other - POSITIVE - FALL Psychological: Other - POSITIVE - "FOGGY" All Other Systems Reviewed And Are Negative: Yes Physical Exam - Summary Physical Exam Summary: VITAL SIGNS: Reviewed. GENERAL: Patient is a well-developed and cachectic male who is lying comfortable in the stretcher. Patient is not in any acute respiratory distress. HEAD AND FACE: No signs of trauma. No ecchymosis, hematomas or skull depressions. No sinus tenderness. EYES: PERRLA, EOMI x 2, No injected conjunctiva, no nystagmus. EARS: Hearing grossly intact. Ear canals and tympanic membranes are within normal limits. MOUTH: Oropharynx within normal limits. NECK: Supple, trachea is midline, no adenopathy, no JVD, no carotid bruit, no c- spine tenderness, neck with full ROM CHEST: Symmetric, no tenderness at palpation LUNGS: Decreased breath sounds bilaterally. No wheezing or crackles. CVS: Regular rate and rhythm, S1 and S2 present, no murmurs or gallops appreciated. ABDOMEN: Soft, diffuse abdominal tenderness. No signs of distention. No rebound no guarding, and no masses palpated. Bowel sounds are normal. EXTREMITIES: FROM in all major joints, no edema, no cyanosis or clubbing. NEURO: Alert and oriented x 3. No acute neurological deficits. Speech is normal and follows commands. SKIN: Dry and warm; old ecchymotic area over left shoulder Triage Information Reviewed: Yes Vital Signs On Initial Exam: Initial Vitals Temp Pulse Resp BP Pulse Ox 99.1 F 73 16 130/62 98 04/03/19 20:06 04/03/19 20:06 04/03/19 20:06 04/03/19 20:06 04/03/19 20:06 Vital Signs Reviewed: Yes Diagnostics - Vital Signs Vital Signs Temp Pulse Resp BP Pulse Ox 04/03/19 20:06 99.1 F 73 16 130/62 98 - Laboratory Result Diagrams: 04/03/19 20:41 04/03/19 20:41 Lab Statement: Any lab studies that have been ordered have been reviewed, and results considered in the medical decision making process. - Radiology CHEST X-RAY Radiology Interpretation Completed By: ED Physician Summary of Radiographic Findings: NO ACUTE PROCESS, PENDING OFFICIAL REPORT. - CT CHEST/ABDOMEN/PELVIS CT CT Interpretation Completed By: Radiologist Summary of CT Findings: IMPRESSION: No acute findings. THIS REPORT WAS REVIEWED BY DR. WESLEY. Re-Evaluation - Re-Evaluation First Eval Re-Evaluation Time: 23:04 Comment: Patient had CT of chest/abd/pel, was negative, bloodwork is unremarkable as well as UA. Urine culture from few days ago was negative. Patient has low grade temp of 100.4 F. Sx likely related to viral syndrome. Electrolytes show no signs of dehydrariton. This was reviewed with patient's . It was advised to increase the patient's liquid intake. Patient will be discharged to home, family and patient are agreeable. GIGU Course/Dx - Course Course Of Treatment: Patient is a 88 y/o M presenting to ED via EMS with with complaints of decreased PO intake since two days ago. Patient had been seem at [facility] last week and was admitted for CHF, elevated trop and weakness. He was discharged to home six days ago. Patient's claims that the patient only had 1/2 a slice of toast and 4 oz of liquid for the past two days and 4 oz of liquid and a few bites of pancake today. The also reports that the patient has appeared more "foggy" and has experienced weight loss recently. Patient reports minimal abdominal pain and the states that the patient has been "gaseous". No SOB is reported but the patient endorses a productive cough. Patient had some diarrhea two days ago after being given a laxative. reports that the patient has had some difficulty with swallowing for the past few years as well. Per triage, "Pt has had cruz eduardaer x2 today for gas pains" . Patient's reports that the patient had experienced a fall after coming home six days ago. The relates this fall to the patient's myositis. Patient has been taking his regular medications and has had his diuretic today. On physical exam, patient is noted to be cachectic. Mild decreased breath sounds bilaterally. Mild diffuse abdominal tenderness is noted. There is an old ecchymotic area at the left shoulder. During ED course, patient received Tylenol 975 mg PO ED ONCE and fluids. Patient had CT of chest/abd/pel, was negative, CXR showed no acute process, bloodwork is unremarkable as well as UA. Urine culture from few days ago was negative. Patient has low grade temp of 100.4 F. Sx likely related to viral syndrome. Electrolytes show no signs of dehydrariton. This was reviewed with patient's . It was advised to increase the patient's liquid intake. Patient will be discharged to home, family and patient are agreeable. - Diagnoses Provider Diagnoses: Viral syndrome Discharge - Sign-Out/Discharge Documenting (check all that apply): Patient Departure - DISCHARGE Patient Received Moderate/Deep Sedation with Procedure: No - Discharge Plan Condition: Stable Disposition: HOME Patient Education Materials: Viral Syndrome (ED) Referrals: Dianne Johansen MD [Primary Care Provider] - 3 Days Additional Instructions: PLEASE RETURN TO THE ED IMMEDIATELY FOR WORSENING OR CONCERNING SYMPTOMS. FOLLOW UP WITH YOUR PRIMARY CARE PHYSICIAN WITHIN THE NEXT THREE DAYS. - Attestation Statements Document Initiated by Scribe: Yes Documenting Scribe: JESSA HARRISON Provider For Whom Jeromeibe is Documenting (Include Credential): ROLA WESLEY MD Scribe Attestation: IJESSA, scribed for ROLA WESLEY MD on 04/03/19 at [id number]. Status of Scribe Document: Ready
[2019-04-03] MEDS ORDERED: Acetaminophen TAB* 325 MG PO ONE (20:27)
[2019-04-03 20:53] LABS: ABS Eosinophils 0.1 10^3/ul (0-0.6); ABS Lymphocytes 0.8 10^3/ul (1.0-4.8); ABS Monocytes 0.7 10^3/ul (0-0.8); ABS Neutrophils 6.5 10^3/ul (1.5-7.7); Eosinophil % 1.1 %; Hematocrit 30 % (42-52); Hemoglobin 9.9 g/dL (14.0-18.0); Lymphocyte % 10.2 %; Mean Corpuscular HGB Conc 33 g/dL (31-36); Mean Corpuscular Hemoglobin 30 pg (27-31); Mean Corpuscular Volume 91 fL (80-94); Platelet Count 210 10^3/uL (150-450); Red Cell Distribution Width 13 % (10.5-15); White Blood Count 8.2 10^3/uL (3.5-10.8)
[2019-04-03 21:04] LABS: Activated Partial Thrombo Time 29.5 seconds (26.0-36.3); INR 1.77 (0.82-1.09)
[2019-04-03 21:10] LABS: ALT 11 U/L (7-52); AST 20 U/L (13-39); Albumin 3.2 g/dL (3.2-5.2); Albumin/Globulin Ratio 0.9 (1-3); Alkaline Phosphatase 72 U/L (34-104); Anion Gap 8 mmol/L (2-11); BUN/Creatinine Ratio 17.7 (8-20); Blood Urea Nitrogen 20 mg/dL (6-24); C Reactive Protein 61.25 mg/L (<8.01); CO2 Carbon Dioxide 22 mmol/L (22-32); Calcium 8.7 mg/dL (8.6-10.3); Chloride 109 mmol/L (101-111); EGFR African American 74.3 (>60); EGFR Non-African American 61.4 (>60); Globulin 3.6 g/dL (2-4); Glucose 111 mg/dL (70-100); Potassium 3.9 mmol/L (3.5-5.0); Sodium 139 mmol/L (135-145); Total Protein 6.8 g/dL (6.4-8.9)
[2019-04-03 21:13] LABS: Troponin I 0.04 ng/mL (<0.04)
[2019-04-03] MEDS ORDERED: NS 0.9% 1000 ML** 1,000 ML IV SCH (21:15)
[2019-04-03] MEDS ORDERED: Iohexol 300* (CONTRAST) 10 ML SDV IV ONE (21:20)
[2019-04-03 22:06] LABS: Urine Appearance Cloudy; Urine Bacteria Absent (Absent); Urine Bilirubin Negative (Negative); Urine Blood 1+ (Negative); Urine Color Yellow; Urine Glucose Negative (Negative); Urine Ketones Trace (Negative); Urine Nitrite Negative (Negative); Urine Protein Negative (Negative); Urine Red Blood Cell Trace(0-2/hpf) (Absent); Urine Specific Gravity 1.021 (1.010-1.030); Urine Urobilinogen Negative (Negative); Urine White Blood Cell Trace(0-5/hpf) (Absent)
[2019-04-03 23:39] VITALS: BP 116/61
== END 2019-04-03 23:40 | disposition home or self-care (01) ==
LOC: ED 19:52
DX: B34.9 Viral infection, unspecified (principal); J44.9 Chronic obstructive pulmonary disease, unspecified; R13.10 Dysphagia, unspecified; Z95.0 Presence of cardiac pacemaker
CPT/HCPCS: 36415; 71045; 71260; 74177; 80053; 81003; 81015; 82270; 83605; 84443; 84484; 85025; 85610; 85730; 86140; 87040; 99282; A9270-GY; Q9967